=== PATIENT | male | born 1970 | race Caucasian/White ===

== ENCOUNTER 2022-09-16 11:14 | Emergency (ER) | payer MEDICAID ==
[~2022-09-16] VITALS: Ht 188 cm; Wt 104.3 kg
--- NOTE | 2022-09-16 11:41 | NUR ---
Patient to ER bed 3 to gown for evaluation. Side rails up. Report given to MINH DOWNING.
--- NOTE | 2022-09-16 11:42 | NUR ---
ER at bedside examining patient.
[2022-09-16] MEDS ORDERED: NACL 0.9% 1,000 ML IV ONE (11:45)
--- NOTE | 2022-09-16 11:45 | NUR ---
RECEIVED PT FROM CHANG ZAMORANO. ASSUMED CARE.
--- NOTE | 2022-09-16 11:56 | NUR ---
LAB SPECIMENS COLLECTED AND DELIVERED TO TRAIN [employer]W MEMBER.
[2022-09-16] MEDS ORDERED: VANCOMYCIN HCL 1,000 MG in NS 250 ML IV ONE (12:00)
[2022-09-16] MEDS ORDERED: KETOROLAC TROMETHAMINE 30 MG VIAL IVP ONE (12:00)
--- NOTE | 2022-09-16 12:00 | NUR ---
# 29 gauge angiocath placed to LAC. Use of asceptic technique. Opsite placed over site. Blood return noted. Flushed with 10 cc of normal saline. No evidence of infiltration noted. Patient tolerated well.
[2022-09-16 12:06] LABS: BASOPHILS % (AUTO) 0.4 % (0.0-2.0); EOSINOPHILS % (AUTO) 0.2 % (0.0-4.0); HEMATOCRIT 45.2 % (36-54); HEMOGLOBIN 15.1 g/dL (14.0-18.0); LYMPHOCYTES # (AUTO) 1.5 K/uL (1.0-5.5); LYMPHOCYTES % (AUTO) 12.1 % (20.5-51.5); MEAN CORPUSCULAR HEMOGLOBIN 29 pg (27-31); MEAN CORPUSCULAR HGB CONC 34 % (32-36); MEAN CORPUSCULAR VOLUME 87 fL (79.0-98.0); MONOCYTES # (AUTO) 0.9 K/uL (0.0-1.0); MONOCYTES % (AUTO) 7.6 % (1.7-9.3); NEUTROPHILS # (AUTO) 9.6 K/uL (1.8-7.7); NEUTROPHILS % (AUTO) 79.7 % (40.0-70.0); PLATELET COUNT (AUTO) 193 K/uL (130-430); RED BLOOD CELL COUNT(AUTO) 5.22 MIL/uL (4.2-6.2); RED CELL DISTRIBUTION WIDTH 13.5 % (9.0-15.0)
[2022-09-16] MEDS ORDERED: VANCOMYCIN HCL 1000 MG/VIAL IV ONE ×2 (12:15→12:17)
[2022-09-16 12:16] LABS: CALCIUM 9.4 mg/dL (8.4-11.0); CREATININE 1.18 mg/dL (0.55-1.30)
--- NOTE | 2022-09-16 12:24 | NUR ---
PT RECEIVING U/S AT BEDSIDE. SCHEDULED MEDS GIVEN, NS BOLUS INITIATED 1000CC, TO BE COMPLETED AT 1325.
[2022-09-16 12:27] LABS: ALBUMIN 3.5 g/dL (3.4-4.8); TOTAL BILIRUBIN 0.6 mg/dL (0.0-1.0)
[2022-09-16 12:45] LABS: PROTHROMBIN TIME 10.4 SECS (9.5-12.5)
--- NOTE | 2022-09-16 12:53 | NUR ---
URINE AND COVID SAMPLES OBTAINED AND TAKEN TO LAB.
[2022-09-16 13:22] LABS: BILIRUBIN,URINE NEGATIVE (NEGATIVE); BLOOD, URINE 1+ (NEGATIVE); CLARITY/URINE CLEAR (CLEAR); COLOR,URINE YELLOW (YELLOW); GLUCOSE,URINE NEGATIVE (NEGATIVE); KETONES,URINE TRACE (NEGATIVE); LEUKOCYTE ESTERASE ,URINE NEGATIVE (NEGATIVE); NITRITE, URINE NEGATIVE (NEGATIVE); PH,URINE 6.5 (5.0-8.0); PROTEIN URINE TRACE (NEGATIVE)
[2022-09-16 13:33] LABS: BACTERIA,URINE None Seen /HPF (None Seen); MUCUS,URINE None Seen /LPF (None Seen); WBC,URINE 0-3 /HPF (0-3)
[2022-09-16] MEDS ORDERED: SULF1TAB48 PO (13:33)
[2022-09-16] MEDS ORDERED: ACET-3465 PO (13:33)
[2022-09-16] MEDS ORDERED: CEPH-548 PO (13:33)
--- NOTE | 2022-09-16 14:23 | NUR ---
DR. RAMOS AT BEDSIDE TO DISCUSS POC.
--- NOTE | 2022-09-16 15:24 | NUR ---
Patient given written and verbal discharge instructions and verbalizes understanding. ER MD discussed with patient the results and treatment provided. Patient in stable condition. ID arm band removed. IV catheter removed intact and dressing applied, no active bleeding. Rx of ACETAMINOPHEN, CEPHALEXIN, BACTRIM given. Patient educated on pain management and to follow up with PMD. Pain Scale 0/10. Opportunity for questions provided and answered. Medication side effect fact sheet provided.
[2022-09-16 15:32] VITALS: BP_SYST 137
== END 2022-09-16 15:32 | disposition home or self-care (01) ==
LOC: SED 11:14
DX: L03.116 Cellulitis of left lower limb (principal); R50.9 Fever, unspecified; M79.662 Pain in left lower leg; R11.0 Nausea; Z79.899 Other long term (current) drug therapy
CPT/HCPCS: 99285; 96365; 93971; 96375; 80053; 81000; 85025; 85610; 85730; 87040; 36415; 73590; 83605; 87804 ×2; J1885; J3370; J7050